=== PATIENT | female | born 1980 | race African-American/Black ===

== ENCOUNTER 2022-02-26 10:17 | Emergency (ER) | payer OTHER ==
[~2022-02-26] VITALS: Ht 165.1 cm; Wt 83.0 kg
[2022-02-26 10:19] VITALS: BP 162/93
== END 2022-02-26 12:03 | disposition home or self-care (01) ==
LOC: ER 10:17
DX: M25.562 Pain in left knee (principal); W19.XXXA Unspecified fall, initial encounter; Y93.89 Activity, other specified; Y92.89 Other specified places as the place of occurrence of the external cause
CPT/HCPCS: 99281